=== PATIENT | female | born 1985 | race Caucasian/White ===

== ENCOUNTER 2017-05-12 19:22 | Emergency (ER) | payer OTHER ==
[~2017-05-12] VITALS: Ht 167.6 cm; Wt 88.9 kg
[~2017-05-12 19:22] MED LIST: NOHOMEMEDS
[2017-05-12] MEDS ORDERED: DULOXETINE HCL60 MG PO (20:39)
[2017-05-12 20:53] LABS: MCH 29.2 PG (29.0-34.0); MCV 88.3 FL (83-99); MEAN PLAT.VOLUME 8.9 uM^3 (9.5-12.4); PLATELET COUNT 332 K/uL (156-360); RBC DIS.WIDTH-CV 12.6 % (11.8-14.6); RBC DIS.WIDTH-SD 40.9 % (39-53); RED BLOOD COUNT 4.87 M/uL (3.80-5.20); WHITE BLOOD COUNT 11.9 K/uL (4.1-10.2)
[2017-05-12 20:56] LABS: CHLORIDE 102 mEq/L (99-109); POTASSIUM 3.5 mEq/L (3.7-5.4); SODIUM 139 mEq/L (136-147)
[2017-05-12 20:58] LABS: GLUCOSE 105 mg/dL (70-99)
[2017-05-12 20:59] LABS: ANION GAP 12 MEQ/L (2-14)
[2017-05-12 21:00] LABS: TOTAL BILIRUBIN 0.7 mg/dL (0.0-1.0)
[2017-05-12 21:02] LABS: ALKALINE PHOSPHATASE 72 IU/L (3-129); GFR ESTIMATE (CALCULATED) > 59 mL/min/
[2017-05-12 21:03] LABS: UREA NITROGEN (BUN) 10 mg/dL (9-23)
[2017-05-12 21:05] LABS: LIPASE 5 U/L (1.0-51.0)
[2017-05-12 21:13] LABS: QUANTITATIVE HCG < 4.0 MIU/ML
[2017-05-12] MEDS ORDERED: PERCOCET 5/31 TABLET PO (22:03)
[2017-05-12] MEDS ORDERED: ZOFRAN ODT4 MG PO (22:03)
[2017-05-12 22:18] LABS: ADD MIUA? YES; BILIRUBIN NEGATIVE; BLOOD NEGATIVE; COLOR YELLOW ((YELLOW)); GLUCOSE (STRIP) NEGATIVE; KETONES 80; LEUKOCYTES TRACE; NITRITE NEGATIVE; PROTEIN (STRIP) 30; SPECIFIC GRAVITY 1.035 (1.000-1.030)
[2017-05-12 22:39] VITALS: BP 112/69
[2017-05-12 22:44] LABS: BACTERIA 2+ /HPF; EPITHELIAL CELLS 1+ /HPF; MUCUS 2+ /LPF; RED BLOOD CELLS 0-5 /HPF (0-5); UCUL ADDED? NO; WHITE BLOOD CELLS 0-5 /HPF (0-5)
[2017-05-12 22:45] LABS: CASTS PRESENT /LPF; CRYSTALS NONE SEEN; HYALINE CASTS 0-5 /LPF
== END 2017-05-12 22:41 | disposition home or self-care (01) ==
LOC: EME 19:22
DX: R10.31 Right lower quadrant pain (principal); R11.2 Nausea with vomiting, unspecified; N83.209 Unspecified ovarian cyst, unspecified side; M79.7 Fibromyalgia; R51 Headache
CPT/HCPCS: 74177; 80053; 81003; 83690; 84702; 85027; 99281; 99285; J1885; J2405; J3010; J7030